=== PATIENT | male | born 1995 | race Caucasian/White ===

== ENCOUNTER 2017-12-19 19:14 | Emergency (ER) | payer OTHER ==
[~2017-12-19] VITALS: Ht 182.9 cm; Wt 108.9 kg
[2017-12-19] MEDS ORDERED: KEFLEX500 M1 PO (20:37)
[2017-12-19] MEDS ORDERED: PROMETHAZINE V473 ML PO (20:37)
[2017-12-19] MEDS ORDERED: TESSALON PERLE100 MG PO (20:37)
[2017-12-19] MEDS ORDERED: PROAIR HFA8.5 GM INH (20:37)
[2017-12-19] MEDS ORDERED: MEDROLDOSEPACK PO (20:37)
[2017-12-19] MEDS ORDERED: ACETAMINOPHEN-1 EAC1 PO (20:37)
[2017-12-19 20:39] LABS: INFLUENZA A ANTIGEN None Detected (None Detect); INFLUENZA B ANTIGEN None Detected (None Detect)
[2017-12-19 20:48] VITALS: BP 137/72
== END 2017-12-19 20:49 | disposition home or self-care (01) ==
LOC: M.ERS 19:14
PROVIDERS: Nurse Practitioner Family
DX: J11.1 Influenza due to unidentified influenza virus with other respiratory manifestations (principal)